=== PATIENT | male | born 1995 | race Caucasian/White ===

== ENCOUNTER → 2023-12-03 | Outpatient (CLI) | payer OTHER | END | disposition home or self-care (01) | LOC: RADMN 10:27 → EDBD 10:27 | PROVIDERS: ATTEND Chiropractor | DX: I51.7 Cardiomegaly (principal); I47.10 Supraventricular tachycardia, unspecified; R07.9 Chest pain, unspecified; K76.9 Liver disease, unspecified; I47.0 Re-entry ventricular arrhythmia; E55.9 Vitamin D deficiency, unspecified; M47.814 Spondylosis without myelopathy or radiculopathy, thoracic region | CPT/HCPCS: 71046; 93005; 93306 ==